=== PATIENT | male | born 1945 | race African-American/Black ===

== ENCOUNTER 2016-10-20 11:46 | Outpatient (CLI) | payer MEDICARE, OTHER ==
[2016-10-20 13:34] LABS: BASOPHILS % (AUTO) 1.4 % (0.0-2.0); EOSINOPHILS % (AUTO) 1.4 % (0.0-3.0); LYMPHOCYTES % (AUTO) 37.4 % (20.0-45.0); MEAN CORPUSCULAR HEMOGLOBIN 31.2 PG (27.0-31.0); MEAN CORPUSCULAR HGB CONC 32.4 G/DL (32.0-36.0); MEAN CORPUSCULAR VOLUME 96 FL (80-99); MEAN PLATELET VOLUME 7.5 FL (6.5-10.1); MONOCYTES % (AUTO) 5.9 % (1.0-10.0); PLATELET COUNT 177 K/UL (150-450); RED CELL DISTRIBUTION WIDTH 14.2 % (11.6-14.8); WHITE BLOOD COUNT 7.1 K/UL (4.8-10.8)
[2016-10-20 13:43] LABS: PROTHROMBIN TIME 10.6 SEC (9.30-11.50)
[2016-10-20 13:51] LABS: HEMOGLOBIN A1C 6.2 % (< 6.0)
[2016-10-20 13:52] LABS: ALANINE AMINOTRANSFERASE 55 U/L (3-41); ALBUMIN/GLOBULIN RATIO 0.8 (1.0-2.7); ANION GAP 11 (5-15); ASPARTATE AMINO TRANSFERASE 47 U/L (5-40); CALCIUM 9.5 mg/dL (8.6-10.2); CARBON DIOXIDE 24 mEQ/L (20-30); CHLORIDE 100 mEQ/L (98-107); CHOLESTEROL 155 mg/dL (< 200); CHOLESTEROL/HDL RATIO 3.3 (3.3-4.4); CREATININE 1.3 mg/dL (0.7-1.2); GLOMERULAR FILTRATION RATE > 60 mL/min (>60); HEMOLYSIS 5; LDL CHOLESTEROL (CALC.) 89 mg/dL (60-99); POTASSIUM 4.6 mEQ/L (3.4-4.9); SODIUM 135 mEQ/L (135-145); TOTAL PROTEIN 8.6 g/dL (6.6-8.7)
--- NOTE | 2016-10-20 14:42 | Diagnostic Imaging Report ---
Indication: Cough Comparison: None 2 views of the chest obtained. Lungs are hyperexpanded. No infiltrate identified. Heart size is normal. The bones are osteopenic. Aorta is calcified. IVC filter noted. Impression: COPD
== END 2016-10-20 13:46 | disposition home or self-care (01) ==
LOC: RAD 11:46
DX: Z01.818 Encounter for other preprocedural examination (principal); R05 Cough; J44.9 Chronic obstructive pulmonary disease, unspecified; M85.80 Other specified disorders of bone density and structure, unspecified site; I10 Essential (primary) hypertension; I73.9 Peripheral vascular disease, unspecified; I96 Gangrene, not elsewhere classified
CPT/HCPCS: 36415; 71020; 80053; 80061; 83036; 84443; 85025; 85610; 85730